=== PATIENT | male | born 1965 | race Caucasian/White ===

== ENCOUNTER 2020-04-24 18:36 | Emergency (ER) | payer MEDICAID, OTHER ==
[~2020-04-24] VITALS: Ht 172.7 cm; Wt 77.1 kg
[~2020-04-24 18:36] MED LIST: METF-442 PO
--- NOTE | 2020-04-24 19:45 | NUR ---
BIBS FROM HOME TO ER BED 12. AAOX4. NOT IN RESO DISTRESS. AMBULATORY. CAME IN FOR FOR CONSTIPATION. PT REPORTS NO BM FOR THE PAST 3 DAY. PAIN IS ON THE LOWER ABD AND RECTU. MD WAS AT THE BEDSIDE FOR EVAL.
[2020-04-24] MEDS ORDERED: MAGNESIUM CITRATE 296 ML BOTTLE ONE (20:03)
[2020-04-24] MEDS: MAGNESIUM CITRATE 296 ML BOTTLE PO ONE (20:05)
[2020-04-24] MEDS ORDERED: MINERAL OIL 133 ML (PYXIS) 1 EA ENEMA RC ONE (20:07)
[2020-04-24] MEDS: MINERAL OIL 133 ML (PYXIS) 1 EA ENEMA RC ONE (20:12)
--- NOTE | 2020-04-24 21:24 | NUR ---
Patient discharged to home in stable condition. Written and verbal after care instructions given. Patient verbalizes understanding of instruction. Pt ambulatory with a steady gait
--- NOTE | 2020-04-24 21:25 | NUR ---
PT DISCHARGE TEACHING WAS EXPLAINED TO PT'S DAUGTHER. DISCHARGE MEDICATION INSTRUCTION WAS GIVEN TO PT'S DAUGTHER.
[2020-04-24 21:27] VITALS: BP 130/88
== END 2020-04-24 21:27 | disposition home or self-care (01) ==
LOC: ER 18:40
DX: K59.00 Constipation, unspecified (principal); E11.9 Type 2 diabetes mellitus without complications; Z90.49 Acquired absence of other specified parts of digestive tract; Z79.84 Long term (current) use of oral hypoglycemic drugs

== ENCOUNTER 2022-09-09 03:44 | Emergency (ER) | payer OTHER ==
[~2022-09-09] VITALS: Ht 167.6 cm; Wt 79.4 kg
[2022-09-09 04:30] VITALS: BP 126/71
--- NOTE | 2022-09-09 04:30 | NUR ---
MEKA FROM HOME WITH PAIN AND SWELLING IN RIGHT SIDE OF NECK 2/2 INSECT BITE. PT AAOX4, IN NAD, PLACED IN BED COMFORTABLY.
[2022-09-09] MEDS ORDERED: LIDOCAINE 5% OINT 35.44 GM TUBE TP STA (04:49)
[2022-09-09] MEDS ORDERED: KETOROLAC TROMETHAMINE 15 MG/ML VIAL ONE (04:55)
[2022-09-09] MEDS ORDERED: KETOROLAC TROMETHAMINE INJ 30 MG/ML VIAL ONE (04:56)
[2022-09-09] MEDS ORDERED: KETOROLAC TROMETHAMINE INJ 60 MG/2 ML VIAL IM ONE (05:00)
[2022-09-09] MEDS ORDERED: IBUP-1957 PO (05:10)
[2022-09-09] MEDS ORDERED: CEPH500T PO (05:10)
[2022-09-09] MEDS ORDERED: LIDO30CR TP (05:10)
--- NOTE | 2022-09-09 05:18 | NUR ---
Patient discharged to home in stable condition. Written and verbal after care instructions given. Patient verbalizes understanding of instruction.
== END 2022-09-09 05:19 | disposition home or self-care (01) ==
LOC: ER 03:46
DX: L02.811 Cutaneous abscess of head [any part, except face] (principal); E11.9 Type 2 diabetes mellitus without complications; Z90.49 Acquired absence of other specified parts of digestive tract
CPT/HCPCS: 99283; 96372; J1885